=== PATIENT | female | born 1955 | race Caucasian/White ===

== ENCOUNTER 2017-02-03 15:21 | Outpatient (CLI) | payer OTHER ==
--- NOTE | 2017-02-04 17:24 | Mammography Report ---
DIGITAL SCREENING MAMMOGRAM: 02/03/2017 CLINICAL INDICATION: A 61-year-old with family history of breast cancer for screening. COMPARISON: 11/2015, 10/2014, 07/2013, 04/2012, 02/2011, 11/2009. TECHNIQUE: Routine CC and MLO projections were obtained of the breasts. The breasts demonstrate heterogeneously dense fibroglandular parenchyma bilaterally. A few punctate, typically benign calcifications are present. No suspicious masses, clustered microcalcifications, o r regions of architectural distortion are identified. IMPRESSION: BENIGN FINDINGS. RECOMMENDATION: ROUTINE ANNUAL SCREENING UNLESS OTHERWISE CLINICALLY INDICATED. BIRADS CATEGORY: 2, BENIGN FINDINGS. STANDARD QUALIFYING STATEMENTS 1. This examination was reviewed with the aid of Computed-Aided Detection (CAD). 2. A negative or benign imaging report should not delay biopsy if clinically suspicious findings are present. Consider surgical consultation if warranted. More than 5% of cancers are not identified b y imaging. 3. Dense breasts may obscure an underlying neoplasm. JOB #: [id number] EXT JOB #:[id number]
== END 2017-02-03 15:22 | disposition home or self-care (01) ==
LOC: DI.N 15:21
PROVIDERS: ATTEND Family Medicine
DX: Z12.31 Encounter for screening mammogram for malignant neoplasm of breast (principal); Z80.3 Family history of malignant neoplasm of breast
CPT/HCPCS: 77067

== ENCOUNTER 2018-03-27 08:00 | Outpatient (CLI) | payer OTHER | END 2018-03-27 08:01 | disposition home or self-care (01) | LOC: LAB.R 08:00 | PROVIDERS: ATTEND Family Medicine | DX: R19.7 Diarrhea, unspecified (principal) | CPT/HCPCS: 81599; 83630; 87045; 87046; 87177; 87209; 87329; 87493 ==

== ENCOUNTER 2018-11-24 14:27 | Outpatient (CLI) | payer OTHER ==
--- NOTE | 2018-11-25 08:49 | Mammography Report ---
Reason: SCREENING MAMMO Procedure Date: 11/24/2018 Accession Number: [id number] / [id number] Procedure: MGN - Screening Mammo Dig Bilat CPT Code: FULL RESULT: EXAM: Screening Mammo Dig Bilat DATE: 11/24/2018 2:46 PM CLINICAL HISTORY: Screening encounter. Family history of breast cancer, sister at the age of 63. TECHNIQUE: (B) - Bilateral CC and MLO views were obtained. COMPARISON: 02/03/2017 through 07/09/2013. PARENCHYMAL PATTERN: (A) - The breast(s) demonstrate(s) scattered fibroglandular densities. FINDINGS: There are no suspicious masses, calcifications, or areas of distortion. IMPRESSION: Negative examination. BI-RADS category 1. RECOMMENDATION: (ANNUAL) - Recommend routine annual screening mammography. BI-RADS CATEGORY: (1) - Negative. STANDARD QUALIFYING STATEMENTS: 1. This examination was not reviewed with the aid of Computer-Aided Detection (CAD). 2. A negative or benign imaging report should not preclude biopsy if clinically suspicious findings are present. 3. Dense breasts may obscure an underlying neoplasm. 4. This examination was reviewed without the aid of 3D breast imaging (tomosynthesis).
== END 2018-11-24 14:28 | disposition home or self-care (01) ==
LOC: DI.N 14:27
DX: Z12.31 Encounter for screening mammogram for malignant neoplasm of breast (principal); Z80.3 Family history of malignant neoplasm of breast
CPT/HCPCS: 77067

== ENCOUNTER 2019-04-28 10:11 | Day surgery (SDC) | payer OTHER ==
[2019-04-28] MEDS ORDERED: LACTATED RINGERS 1,000 ML IV ONE (10:20)
[2019-04-28 12:29] VITALS: BP 111/64
== END 2019-04-28 10:12 | disposition home or self-care (01) ==
LOC: SDS 10:11
PROVIDERS: ATTEND Surgery
PROC: 0DJD8ZZ Inspection of Lower Intestinal Tract, Via Natural or Artificial Opening Endoscopic (ICD-10-PCS; principal; 2019-04-28 11:30)
DX: Z12.11 Encounter for screening for malignant neoplasm of colon (principal); K59.8 Other specified functional intestinal disorders; K57.30 Diverticulosis of large intestine without perforation or abscess without bleeding; K64.8 Other hemorrhoids; I10 Essential (primary) hypertension; Z80.3 Family history of malignant neoplasm of breast; Z87.891 Personal history of nicotine dependence
CPT/HCPCS: 45378; J7120

== ENCOUNTER 2019-06-10 10:47 | Outpatient (CLI) | payer OTHER ==
--- NOTE | 2019-06-11 08:47 | XRAY Report ---
Reason: LEFT WRIST PAIN Procedure Date: 06/10/2019 Accession Number: [id number] / [id number] Procedure: WCP - Wrist 3 View LT CPT Code: Final Report FULL RESULT: EXAM: LEFT WRIST RADIOGRAPHY, 3 VIEWS EXAM DATE: 06/10/2019 10:47 AM. CLINICAL HISTORY: Left wrist pain in a 63-year-old female post fall onto left wrist 2 months ago. COMPARISON: WRIST 3 VIEW BILAT 05/21/2018. TECHNIQUE: Frontal, lateral and oblique views. FINDINGS: Bones: Normal. No fractures or bone lesions. Joints: Severe osteoarthritis carpometacarpal joint, as noted previously. No subluxation or joint effusion. Remaining joint spaces well maintained. Soft Tissues: Normal. No soft tissue swelling. IMPRESSION: Severe osteoarthritis carpometacarpal joint, similar to prior study of May 2018. No new abnormality. RADIA
== END 2019-06-10 23:59 | disposition home or self-care (01) ==
LOC: DI.WCP 10:47
PROVIDERS: ATTEND Family Medicine
DX: M19.032 Primary osteoarthritis, left wrist (principal)

== ENCOUNTER 2020-03-08 13:27 | Outpatient (CLI) | payer OTHER ==
--- NOTE | 2020-03-09 05:47 | Mammography Report ---
BILATERAL DIGITAL SCREENING MAMMOGRAM 3D/2D: 03/08/2020 CLINICAL: Routine screening. Comparison is made to exams dated: 11/24/2018 mammogram, 02/03/2017 mammogram, 11/09/2015 mammogram, and 10/28/2014 mammogram - [facility]. There are scattered fibroglandular elements in both breasts. No significant masses, calcifications, or other findings are seen in either breast. There has been no significant interval change. IMPRESSION: NEGATIVE There is no mammographic evidence of malignancy. A 1 year screening mammogram is recommended. This exam was interpreted at Station ID: [id number]. NOTE: For mammograms, a report in lay terms will be sent to the patient. Approximately 15% of breast malignancies will not be visualized mammographically. In the management of a palpable breast mass, a negative mammogram must not discourage biopsy of a clinically suspicious lesion. Electronically Signed By: Maria Elena mercado/mariai:03/08/2020 14:45:37 ACR BI-RADS Category 1: Negative 3341F PARENCHYMAL PATTERN: (A) - The breast(s) demonstrate(s) scattered fibroglandular densities. BI-RADS CATEGORY: (1) - 1 RECOMMENDATION: (ANNUAL) - Recommend routine annual screening mammography. [id number] 1 year screening LATERALITY: (B)
== END 2020-03-08 13:28 | disposition home or self-care (01) ==
LOC: DI.N 13:27
DX: Z12.31 Encounter for screening mammogram for malignant neoplasm of breast (principal)
CPT/HCPCS: 77063; 77067

== ENCOUNTER 2020-12-09 12:07 | Outpatient (CLI) | payer OTHER ==
--- NOTE | 2020-12-09 12:45 | XRAY Report ---
PROCEDURE: Chest 2 View X-Ray INDICATIONS: CHEST PX TECHNIQUE: 2 view(s) of the chest. COMPARISON: None. FINDINGS: Surgical changes and devices: None. Lungs and pleura: No pleural effusions or pneumothorax. Lungs are clear. Mediastinum: Mediastinal contours are normal. Heart size is normal. Bones and chest wall: No suspicious bony abnormalities. Soft tissues appear unremarkable. IMPRESSION: Normal for age, source of current symptoms is not seen. Reviewed by: Marcos Long MD on 12/09/2020 11:43 AM BE Approved by: Marcos Long MD on 12/09/2020 11:43 AM BE Station ID: [id number]
== END 2020-12-09 12:08 | disposition home or self-care (01) ==
LOC: DI.N 12:07
PROVIDERS: ATTEND Physician Assistant Medical
DX: R06.00 Dyspnea, unspecified (principal)

== ENCOUNTER 2021-01-08 13:30 | Emergency (ER) | payer MEDICARE, OTHER ==
--- NOTE | 2021-01-08 15:00 | XRAY Report ---
PROCEDURE: Shoulder 3 View RT INDICATIONS: shoulder inj TECHNIQUE: 3 views of the shoulder were acquired. COMPARISON: Correlation is made with the accompanying chest radiograph, 01/08/2021. FINDINGS: Bones: A mildly displaced, comminuted fracture can be seen of the right humeral head and neck. No shoulder dislocation can be seen. The visualized ribs appear intact. Age-appropriate degenerativ e changes are seen. Soft tissues: No suspicious soft tissue calcifications. The visualized lung demonstrates a normal a ppearance. IMPRESSION: Mildly displaced right humeral head and neck fracture. Reviewed by: Kevin Gregg MD on 01/08/2021 1:59 PM BE Approved by: Kevin Gregg MD on 01/08/2021 1:59 PM BE Station ID: [id number]
[2021-01-08] MEDS ORDERED: TETANUS/DIPHTHERIA/PERTUSSIS 0.5 ML SYRINGE IM ONE (15:56)
[2021-01-08] MEDS ORDERED: HYDROcod/ACETAM 5/325 MG TABLET PO STA (15:56)
--- NOTE | 2021-01-08 15:58 | ED Physician Documentation ---
PD HPI UPPER EXT INJURY - Stated complaint Stated Complaint: RT SHOULDER INJ - Chief complaint Chief Complaint: Trauma Ext - History obtained from History obtained from: Patient (This is a rossana 65-year-old woman who took a ground-level fall onto her right shoulder while hiking just prior to arrival. She skinned her left knee, tetanus is unknown. The major source of pain though is the right shoulder which she is unable to move due to pain.) Review of Systems Constitutional: reports: Reviewed and negative Eyes: reports: Reviewed and negative Ears: reports: Reviewed and negative Nose: reports: Reviewed and negative PD PAST MEDICAL HISTORY - Past Medical History Cardiovascular: Hypertension Respiratory: Asthma, Other Endocrine/Autoimmune: None GI: GERD, Hiatal hernia : None HEENT: Other Psych: Depression, Claustrophobia Musculoskeletal: Osteoarthritis Derm: None - Past Surgical History Past Surgical History: No General: Colonoscopy Ortho: Carpal Tunnel surgery, Other HEENT: Cataracts - Present Medications Home Medications: Ambulatory Orders Medication Instructions Recorded Confirmed Budesonide/Formoterol 80/4.5 2 puffs INH BID 12/08/13 04/27/19 [Symbicort] Citalopram Hydrobromide [Celexa] 20 mg PO DAILY 12/08/13 04/27/19 Lisinopril 20 mg PO DAILY 12/08/13 04/27/19 diphenhydrAMINE [Benadryl] 25 mg PO BID 12/13/13 04/27/19 prednisoLONE 1% OPHTH DROPS [Pred 1 drop OPTH DAILY 12/13/13 04/27/19 Forte 1% Ophth Drops] HYDROcod/ACETAM 5/325 [Vicodin 1 tab PO TID 04/19/14 04/27/19 5/325] Albuterol Sulf [Ventolin Hfa 2 puffs PO DAILY PRN 04/27/19 04/27/19 Inhaler] Ibuprofen 200 mg PO DAILY 04/27/19 04/27/19 HYDROcod/ACETAM 5/325 [Busy 5/325] 1 - 2 tab PO Q6H PRN #15 tablet 01/08/21 - Allergies Allergies/Adverse Reactions: Allergies Allergy/AdvReac Type Severity Reaction Status Date / Time Penicillins Allergy Unknown Unknown Verified 01/08/21 13:58 sulfamethoxazole Allergy Itching Verified 01/08/21 13:58 [From Bactrim] trimethoprim [From Bactrim] Allergy Itching Verified 01/08/21 13:58 - Social History Does the pt smoke?: No Smoking Status: Never smoker Does the pt drink ETOH?: No Does the pt have substance abuse?: No - Immunizations Immunizations are current?: Yes PD ED PE NORMAL - Vitals Vital signs reviewed: Yes - General General: Alert and oriented X 3, No acute distress - HEENT HEENT: PERRL, EOMI - Neck Neck: Supple, no meningeal sign, No bony TTP - Extremities Extremities: Other (Tender over the humeral head on the right. The remainder of the extremities are nontender. There is a large abrasion over the left patella but no tenderness or limited range of motion.) - Neuro Neuro: Alert and oriented X 3, Normal speech Results - Vitals Vitals: Vital Signs - 24 hr 01/08/21 13:58 Temperature 36.5 C Heart Rate 76 Respiratory 16 Rate Blood Pressure 147/74 H O2 Saturation 98 Oxygen O2 Source [With Activity] Room air O2 Source Room air PD MEDICAL DECISION MAKING - ED course ED course: Tetanus was updated. The left knee abrasion was irrigated and dressed. She is placed in a sling for the humerus fracture. Referred to orthopedics. I am prescribing a short course of short-acting opioid pain medication for this patient. I have reviewed the patients COMPENSATION SPECIALIST and no concerning findings were noted. I have discussed that the opioids are for short term therapy only, and will not be refilled from the ED. Diagnoses: 1. Right humeral head fracture 2. Left knee abrasion Departure - Departure Disposition: Home, Self Care Condition: Good Record reviewed to determine appropriate education?: Yes Instructions: ED Fx Upper Ext Follow-Up: Emerson Matthew MD [Provider Admit Priv/Credential] - Prescriptions: HYDROcod/ACETAM 5/325 [Busy 5/325] 1 - 2 tab PO Q6H PRN #15 tablet PRN Reason: Pain Comments: Diagnoses: 1. Right humeral head fracture 2. Left knee abrasion Call the orthopedic office tomorrow for an appointment. Keep the sling on until you see them. Return if worse or if new symptoms develop. For the left knee abrasion you can wash with soap and water then keep it greasy with Vaseline or bacitracin ointment which is available zmix-clg-[id number] and a dressing. I am prescribing a short course of narcotic pain medication for you. These are potentially dangerous and addictive medications that should be used carefully. These medications may constipate you. Take an fwht-mrg-utjfpia stool softener (docusate) twice daily with plenty of water while taking these medications. If you go 24 hours without a bowel movement, take jbrr-dxg-wzilvdb miralax, per package instructions. Do not drink or drive while taking these medications. If you received narcotic or sedating medications while in the emergency department, do not drive for 24 hours. Store this medication in a safe, secure place and out of reach of children. It is a violation of federal law to give or sell this medication to another person or to use in a manner other than prescribed. The ED will not refill narcotic prescriptions, including prescriptions lost or stolen. To dispose of unwanted medications: 1. [facility] at [address] in [place] has a medication drop box. They accept prescription medications (in pill form) Friday through Friday 9:00 a.m. to 5:00 p.m. 2. The [facility] [employer] accepts prescription medications (in pill form only) for disposal year round. Call for more information. 3. Contact the [facility] for the next [facility] sponsored prescription drug collection event. , [phone], or [phone]; Note that many narcotic pain relievers also contain Tylenol/acetaminophen. Please ensure that your total dose of acetaminophen from all sources does not exceed 3 g (3000 mg) per day.
[2021-01-08 16:15] VITALS: BP 130/74
== END 2021-01-08 16:32 | disposition home or self-care (01) ==
LOC: ED 13:30
DX: S80.212A Abrasion, left knee, initial encounter (principal); S42.291A Other displaced fracture of upper end of right humerus, initial encounter for closed fracture; W18.30XA Fall on same level, unspecified, initial encounter; Y93.01 Activity, walking, marching and hiking
CPT/HCPCS: 73030; 90471; 90715; 99283; A9270

== ENCOUNTER 2021-01-13 13:24 | Outpatient (CLI) | payer MEDICARE ==
--- NOTE | 2021-01-13 16:07 | XRAY Report ---
PROCEDURE: Humerus RT INDICATIONS: MID HUMERUS PAIN TECHNIQUE: 2 views of the humerus were acquired. COMPARISON: 01/08/2021 FINDINGS: Bones: Mildly displaced fracture lines are again seen involving the right humeral head and neck. No new fracture is seen. No suspicious lytic or blastic lesions are seen. The visualized ribs appear intact. Soft tissues: No suspicious soft tissue calcifications. The visualized lung demonstrates a normal a ppearance. IMPRESSION: Redemonstration of right humeral head and neck fractures. No abnormality of the mid humerus can be seen. Reviewed by: Kevin Gregg MD on 01/13/2021 3:06 PM BE Approved by: Kevin Gregg MD on 01/13/2021 3:06 PM BE Station ID: [id number]
== END 2021-01-13 13:25 | disposition home or self-care (01) ==
LOC: DI.N 13:24
PROVIDERS: ATTEND Physician Assistant Medical
DX: S42.291A Other displaced fracture of upper end of right humerus, initial encounter for closed fracture (principal)

== ENCOUNTER 2023-05-31 12:56 | Outpatient (CLI) | payer MEDICARE ==
--- NOTE | 2023-06-01 11:35 | XRAY Report ---
PROCEDURE: Chest 2 View X-Ray INDICATIONS: CHEST PAIN, ATYPICAL TECHNIQUE: 2 views of the chest were acquired. COMPARISON: None. FINDINGS: Surgical changes and devices: None. Lungs and pleura: No pleural effusions or pneumothorax. Lungs are clear. Mediastinum: Mediastinal contours appear normal. Heart size is normal. Aortic arch is calcified, in dicating atherosclerosis. Bones and chest wall: No suspicious bony lesions. Overlying soft tissues appear unremarkable. IMPRESSION: No acute cardiopulmonary process. Reviewed by: Tracie Pisano MD on 06/01/2023 11:34 AM PST Approved by: Tracie Pisano MD on 06/01/2023 11:34 AM PST Station ID: [id number]
== END 2023-05-31 12:57 | disposition home or self-care (01) ==
LOC: DI 12:56
PROVIDERS: ATTEND Physician Assistant Medical
DX: R07.89 Other chest pain (principal)

== ENCOUNTER 2023-06-05 14:10 | Outpatient (CLI) | payer MEDICARE ==
--- NOTE | 2023-06-05 16:35 | DEXA Report ---
PROCEDURE: Dexa Spine and/or Hip INDICATIONS: OSTEOPENIA TECHNIQUE: Dual energy x-ray absorptiometry (DXA) was performed on a [email or web address] System. Regions measur ed are the AP Spine, femoral neck, and if needed forearm. COMPARISON: 02/07/2020, 02/22/2016 FINDINGS: Lumbar Spine: Bone Mineral Density 0.960 g/cm/cm,T score -1.8. Since the most recent prior study, there has been a statistically significant increase in bone mineral density by 3.7 percent. Left Femoral Neck: Bone Mineral Density 0.782 g/cm/cm, T score -1.8. Left Hip: Bone Mineral Density 0.772 g/cm/cm,T score -1.9. There has been no statistically significant change i n bone mineral density since the prior study. (T score greater or equal to -1.0: NORMAL) (T score from -1.1 to -2.4: OSTEOPENIA) (T score less than or equal to -2.5 to: OSTEOPOROSIS) Impression: By WHO criteria, this patient has low bone density (osteopenia). Interval statistical increase in bone minteral density of the lumbar spine. No statistical interval c hange in bone minteral density of the hip. Patients with diagnosis of osteoporosis or osteopenia should have regular bone mineral density assess ment. For those eligible for Medicare, routine testing is allowed once every 2 years. Testing frequ ency can be increased for patients who have rapidly progressing disease or for those who are receivin g medical therapy to restore bone mass. Reviewed by: Jeffery Marcelo on 06/05/2023 4:34 PM PST Approved by: Jeffery Marcelo on 06/05/2023 4:34 PM PST Station ID: [id number]
== END 2023-06-05 14:11 | disposition home or self-care (01) ==
LOC: DI 14:10
PROVIDERS: ATTEND Internal Medicine Rheumatology
DX: M85.80 Other specified disorders of bone density and structure, unspecified site (principal)

== ENCOUNTER 2023-06-17 15:42 | Outpatient (CLI) | payer MEDICARE ==
--- NOTE | 2023-06-17 16:53 | XRAY Report ---
PROCEDURE: Lumbar Spine 2 View INDICATIONS: DEGENERATIVE DISC DISEASE,BACK PAIN TECHNIQUE: 2 views of the lumbar spine were acquired. COMPARISON: None. FINDINGS: Bones: 5 iyi-oxq-qeghzbg vertebrae are present. There is normal bony alignment. No vertebral body compression fractures. No suspicious bony lesions. Lower lumbar facet arthropathy. Soft tissues: Overlying bowel gas pattern is normal. No suspicious soft tissue calcifications. IMPRESSION: No acute bony abnormality. Lower lumbar facet arthropathy. Reviewed by: Dheeraj Dennis MD on 06/17/2023 4:52 PM PST Approved by: Dheeraj Dennis MD on 06/17/2023 4:52 PM PST Station ID: [id number]
--- NOTE | 2023-06-17 16:53 | XRAY Report ---
PROCEDURE: Cervical Spine 2 View INDICATIONS: DEGENERATIVE DISC DISEASE,BACK PAIN TECHNIQUE: 3 view(s) of the cervical spine were acquired. COMPARISON: None. FINDINGS: Bones: No fractures or dislocations to the T1 level. The lateral masses of C1 appear intact on the odontoid view. No suspicious bony lesions. Severe cervical spondylosis. Multilevel facet arthropathy . Significant multilevel disc height loss with associated uncovertebral joint hypertrophy. Suspect mu ltilevel foraminal narrowing. Soft tissues: No prevertebral soft tissue swelling. IMPRESSION: Severe cervical spondylosis. Reviewed by: Dheeraj Dennis MD on 06/17/2023 4:51 PM PST Approved by: Dheeraj Dennis MD on 06/17/2023 4:51 PM PST Station ID: [id number]
--- NOTE | 2023-06-17 16:54 | XRAY Report ---
PROCEDURE: Thoracic Spine 3 View INDICATIONS: DEGENERATIVE DISC DISEASE,BACK PAIN TECHNIQUE: 3 views of the thoracic spine were acquired. COMPARISON: Cervical spine and lumbar spine plain films from the same date FINDINGS: Bones: No fractures or dislocations. No suspicious bony lesions. 12 pairs of ribs are noted, and a ppear intact where visualized. Soft tissues: No paravertebral stripe thickening. IMPRESSION: No acute bony abnormality. Reviewed by: Dheeraj Dennis MD on 06/17/2023 4:53 PM PST Approved by: Dheeraj Dennis MD on 06/17/2023 4:53 PM PST Station ID: [id number]
== END 2023-06-17 15:43 | disposition home or self-care (01) ==
LOC: DI 15:42
PROVIDERS: ATTEND Physician Assistant Medical
DX: M51.36 Other intervertebral disc degeneration, lumbar region (principal); M47.816 Spondylosis without myelopathy or radiculopathy, lumbar region; M50.30 Other cervical disc degeneration, unspecified cervical region; M47.812 Spondylosis without myelopathy or radiculopathy, cervical region

== ENCOUNTER 2023-10-06 08:00 | Outpatient (CLI) | payer MEDICARE | END 2023-10-06 23:59 | disposition home or self-care (01) | LOC: LAB.N 08:00 | PROVIDERS: ATTEND Physician Assistant Medical | DX: N39.0 Urinary tract infection, site not specified (principal) | CPT/HCPCS: 87086 ==